=== PATIENT | female | born 1960 ===

== ENCOUNTER 2019-02-23 19:00 | Emergency (ER) | payer SELFPAY ==
[~2019-02-23] VITALS: Ht 157.5 cm; Wt 69.0 kg
[2019-02-23] MEDS ORDERED: TETANUS, DIPHTHERIA, PERTUSSIS VAC/PF 0.5ML (>7YR OLD) IM ONE (23:30)
[2019-02-23] MEDS ORDERED: LIDOCAINE HCL/PF 1% 10 MG/ML 5ML VIAL IJ ONE (23:30)
[2019-02-23] MEDS ORDERED: BACITRACIN ZINC OINT UDPKT TOP ONE (23:30)
[2019-02-24 02:30] VITALS: BP 154/82
== END 2019-02-24 02:30 | disposition home or self-care (01) ==
LOC: ER 19:00
DX: S91.011A Laceration without foreign body, right ankle, initial encounter (principal); W25.XXXA Contact with sharp glass, initial encounter; Y93.89 Activity, other specified; Y92.9 Unspecified place or not applicable
CPT/HCPCS: 12002; 73610; 90471; 90715; 99283; A4217; J3490; Z7610